=== PATIENT | female | born 1980 | race Caucasian/White ===

== ENCOUNTER 2018-01-26 16:23 | Emergency (ER) | payer OTHER, MEDICAID ==
[~2018-01-26] VITALS: Ht 160 cm; Wt 117.5 kg
[~2018-01-26 16:23] MED LIST: ALBUTEROL SULF8.5 GM IH; AUGMENTIN 500-1 EACH PO; BACTRIM DS TAB1 EACH PO; CARAFATE 1 GM TA1 G1; CLARITIN10 M2; CYMBALTA30 MG PO; CYMBALTA60 MG; DIPHENHIST50 MG PO; EPIPEN 2-P0.3 MG/0.3 IM; FLONASE; FLONASE 0.05%50 MCG NASAL; IBUPROFEN 800800 M1 PO; KEFLEX500 MG PO; LOVENOX40 MG/0.4 SQ; MACROBID 100 M100 M1 PO; MECLIZINE 25 MG25 M1; MEDROLDOSEPACK PO; NEURONTIN 300300 M1; NEURONTIN 300M300 M2; NORCO 5-325 TA1 EACH PO; OMEPRAZOLE40 MG; ONDANSETRON HCL4 M2 PO; PEPCID20 MG PO; PREDNISONE 10 M10 MG PO; PREDNISONE50 MG PO; PYRIDIUM200 MG PO; REGLAN 10 MG TA10 M1 PO; SINGULAIR 10 MG10 M1 PO; SYMBICORT160 MCG/4.; SYMBICORT80 MCG/4.1 INH; SYNTHROID25 MCG PO; TOBRADEX EYE DRO5 ML NASAL; VENTOLIN HFA 1818 GM INH; ZOCOR; ZOFRAN ODT4 MG; ZPAK PO; ZYRTEC10 MG PO; [UNRECOGNIZED DRUG - OTHER]
[2018-01-26] MEDS ORDERED: CLARITIN10 MG PO (16:38)
[2018-01-26] MEDS ORDERED: FLONASE 0.05%50 MCG NASAL (16:40)
[2018-01-26] MEDS ORDERED: IBUPROFEN 800800 MG PO (17:10)
[2018-01-26 17:40] VITALS: BP 123/79
[2018-01-27] MEDS ORDERED: NORCO 5-325 TA1 EAC1 PO (21:24)
== END 2018-01-26 17:42 | disposition home or self-care (01) ==
LOC: M.ERS 16:23
DX: S60.211A Contusion of right wrist, initial encounter (principal); E78.00 Pure hypercholesterolemia, unspecified; Z90.710 Acquired absence of both cervix and uterus; Z88.8 Allergy status to other drugs, medicaments and biological substances; Z88.5 Allergy status to narcotic agent; Z91.013 Allergy to seafood; W22.8XXA Striking against or struck by other objects, initial encounter; Y93.89 Activity, other specified; Y92.89 Other specified places as the place of occurrence of the external cause; Y99.8 Other external cause status

== ENCOUNTER 2018-01-27 21:00 | Emergency (ER) | payer OTHER, MEDICAID ==
[~2018-01-27] VITALS: Ht 160 cm; Wt 117.9 kg
[~2018-01-27 21:00] MED LIST changes: +CLARITIN10 MG PO; +IBUPROFEN 800800 MG PO
[2018-01-27 21:03] VITALS: BP 132/96
[2018-01-27] MEDS ORDERED: NORCO 5-325 TA1 EAC1 PO (21:24)
== END 2018-01-27 21:42 | disposition home or self-care (01) ==
LOC: M.ERS 21:00
DX: S63.501A Unspecified sprain of right wrist, initial encounter (principal); E78.00 Pure hypercholesterolemia, unspecified; Z90.710 Acquired absence of both cervix and uterus; Z87.442 Personal history of urinary calculi; Z88.4 Allergy status to anesthetic agent; Z88.5 Allergy status to narcotic agent; Z91.013 Allergy to seafood; X58.XXXA Exposure to other specified factors, initial encounter; Y93.89 Activity, other specified; Y92.89 Other specified places as the place of occurrence of the external cause; Y99.8 Other external cause status

== ENCOUNTER → 2018-04-20 | Outpatient (CLI) | payer OTHER, MEDICAID ==
[~2018-04-20] MED LIST changes: +NORCO 5-325 TA1 EAC1 PO
== END ==
LOC: M.RAD 09:48
DX: Z12.31 Encounter for screening mammogram for malignant neoplasm of breast (principal); E78.00 Pure hypercholesterolemia, unspecified

== ENCOUNTER 2019-02-14 00:01 | Inpatient (IN) | payer OTHER, MEDICAID ==
[~2019-02-14] VITALS: Ht 160 cm; Wt 114.8 kg
--- NOTE | ~2019-02-14 | CON ---
[address] [address] CONSULTATION Name: KAY BOONE Room: [address] IN .R.#: [id number] Admission: 02/14/19 Attend Phys: Jeff Geller, Discharge: Date of : 82 Report #: [id number] THIS REPORT FOR: //name// CC: Gareth Geller HISTORY OF PRESENT ILLNESS: This is a pleasant 38-year-old female with past medical history significant for fibromyalgia, osteoarthritis who is presenting for evaluation of acute onset right lower quadrant abdominal pain. The patient reports the pain began yesterday in the afternoon. The pain is located in the right lower quadrant, nonradiating and there is no specific relation to food or bowel movements. The patient does, however, report that since the onset of pain, she has noticed diarrhea and has gone about 4-5 bowel movements a day. She denies any hematemesis. The patient does report mild tenesmus and urge to pass stool, but she often does not pass stool. The patient denies similar episodes in the past and has never had a colonoscopy in the past. PAST MEDICAL HISTORY: As mentioned above. The patient has history of fibromyalgia, osteoarthritis. PAST SURGICAL HISTORY: The patient had hysterectomy in the past because of family history of ovarian cancer and uterine cancer. SOCIAL HISTORY: The patient smokes about a pack per day, but is attempting to quit smoking by taking Chantix. She has a history of recreational marijuana use that she quit about 6 months back. REVIEW OF SYSTEMS: A comprehensive 10-point review of systems is negative except for what was mentioned in the HPI. PHYSICAL EXAMINATION: VITAL SIGNS: Temperature 37.9, pulse rate 110, blood pressure 107/59, respiratory rate 20. GENERAL: The patient is alert, awake, oriented x 3. HEENT: Pupils are equal, round, and reactive to light and accommodation. Mucous membranes are moist. There is no congestion. LUNGS: Clear to auscultation bilaterally. CARDIOVASCULAR: Rate and rhythm regular, S1, S2 present. ABDOMEN: Soft. There is mild tenderness to deep palpation in the right lower quadrant. Otherwise, abdominal exam is normal. EXTREMITIES: Warm and well perfused. There is no edema. SKIN: Warm and dry. LABORATORY DATA: Hemoglobin 12.8, hematocrit 39.8, platelet count 357, WBC count 14.8. Sodium 139, potassium 3.3, chloride 104, bicarb 24, BUN 8, creatinine 0.6, total bilirubin 0.2, AST 16, ALT 21, alk phos 111. [place]R 0[place]9. [place] [address] CONSULTATION Name: KYA BOONE ARACELI Room: [address] IN ..#: [id number] Admission: 02/14/19 Attend Phys: Jeff Geller, Discharge: Date of : 82 Report #: [id number] IMAGING: CT abdomen and pelvis, findings showed mild right-sided colitis. Suspect reactive right mesenteric adenopathy. A large bilobed left ovarian cystic mass. Suggest pelvic ultrasound for further evaluation. ASSESSMENT AND PLAN: This is a 38-year-old female with history as outlined above, presenting for evaluation of right lower quadrant abdominal pain and diarrhea. I would check the patient with stool pathogens and Clostridium difficile and if that is negative, proceed with colonoscopy. Further recommendations will be based on the results of colonoscopy. By: [id number] Tsai MD /nt
[2019-02-14 00:12] VITALS: BP 139/79
[2019-02-14 01:02] LABS: ABSOLUTE LYMPHOCYTES 1.7 thou/uL (0.8-5.3); ABSOLUTE MONOCYTES 0.7 thou/uL (0.0-1.2); ABSOLUTE NEUTROPHILS 12.4 thou/uL (1.6-8.1); BASOPHILS 0.3 %; EOSINOPHILS 0.3 %; HEMATOCRIT 39.8 % (37.0-47.0); HEMOGLOBIN 12.8 gm/dL (12.0-15.0); LYMPHOCYTES 11.5 %; MCH 28.9 pg (26.0-34.0); MCHC 32.1 g/dL (28.0-37.0); MONOCYTES 4.6 %; NUCLEATED RBCS 0 /100WBC; PLATELET COUNT* 357 thou/uL (150-400); POLYS 83.3 %; RBC 4.43 mil/uL (4.20-5.00); RDW-CV 15.9 % (10.5-14.5); WBC 14.8 thou/uL (4.0-11.0)
[2019-02-14 01:14] LABS: CALCIUM 8.8 mg/dL (8.5-10.1); CREATININE 0.9 mg/dL (0.6-1.3); POTASSIUM 3.2 mmol/L (3.5-5.1)
[2019-02-14 01:19] LABS: ALBUMIN 3.3 g/dL (3.4-5.0); TOTAL BILIRUBIN 0.2 mg/dL (<0.1-1.0); TOTAL PROTEIN 7.4 g/dL (6.4-8.2)
[2019-02-14 01:44] LABS: URINE BILIRUBIN NEGATIVE (Negative); URINE BLOOD NEGATIVE (Negative); URINE CLARITY CLEAR; URINE COLOR YELLOW; URINE GLUCOSE-RANDOM NEGATIVE (Negative); URINE KETONES NEGATIVE (Negative); URINE LEUKOCYTES-REFLEX NEGATIVE (Negative); URINE NITRITE-REFLEX NEGATIVE (Negative); URINE PROTEIN NEGATIVE (Negative); URINE SPECIFIC GRAVITY >= 1.030 (1.005-1.030); URINE UROBILINOGEN 0.2 E.U./dl (0.2-1.0)
[2019-02-14 02:51] LABS: BE -0.9 mmol/L (-2 to +3); PCO2 34.9 mmHg (35.0-45.0); PO2 63.8 mmHg (75.0-100.0); pH 7.435 (7.340-7.450)
[2019-02-14 03:20] LABS: APTT 32.9 Seconds (25.0-31.3); INR 0.9; PROTIME 9.5 Seconds (9.20-11.50)
[2019-02-14 03:45] VITALS: BP 115/65
[2019-02-14 03:50] VITALS: BP 118/69
--- NOTE | 2019-02-14 07:49 | NUR ---
PT ADMITTED TO UNIT FROM ER AT ABOUT 0350. HR TACHY AT 122, PT SAYS ITS WITHIN HER NORMAL. TEMP AT ASSESSMENT = 100.4. NS INFUSING AT 100ML/HR. MORPHINE GIVEN X1 THIS SHIFT. DAUGHTER WITH PT IN THE ROOM. PT ORIENTED TO ROOM AND CALL LIGHT. HOURLY ROUNDINGS MADE. CALL LIGHT WITHIN REACH. GI CONSULT CALLED IN TO [facility] ([facility]). NPO AFTER MN. WILL CONTINUE TO MONITOR.
[2019-02-14 08:30] VITALS: BP 107/59
[2019-02-14 11:21] LABS: CALCIUM 8.4 mg/dL (8.5-10.1); CREATININE 0.6 mg/dL (0.6-1.3); MAGNESIUM 1.8 mg/dL (1.8-2.4); POTASSIUM 3.3 mmol/L (3.5-5.1)
[2019-02-14 16:00] VITALS: BP 109/51
--- NOTE | 2019-02-14 20:18 | NUR ---
I ASSUMED CARE OF THE PATIENT AT 0700. SHE IS ALERT AND ORIENTED X4 AND IS UP AD MIRA. HOURLY ROUNDING IS COMPLETED AND PATIENT NEEDS ARE MET. PAIN IS MANAGED WITH PRN MEDS. IV WAS REPLACED IN THE RIGHT AC. POTASSIUM WAS REPLACED. DAUGHTER IS AT THE BEDSIDE. BED IS IN THE LOW LOCKED POSITION AND CALL LIGHT IS IN REACH. WILL CONTINUE TO MONITOR.
[2019-02-14 21:00] VITALS: BP 109/55
[2019-02-15 03:42] LABS: ABSOLUTE EOSINOPHILS 0.1 thou/uL (0.0-0.7); ABSOLUTE LYMPHOCYTES 2.4 thou/uL (0.8-5.3); ABSOLUTE MONOCYTES 0.7 thou/uL (0.0-1.2); ABSOLUTE NEUTROPHILS 5.8 thou/uL (1.6-8.1); BASOPHILS 0.5 %; EOSINOPHILS 0.7 %; HEMOGLOBIN 11.5 gm/dL (12.0-15.0); LYMPHOCYTES 26.6 %; MCH 28.9 pg (26.0-34.0); MCV 90.4 fL (80.0-100.0); MONOCYTES 7.6 %; MPV 8.1 fl. (7.2-11.1); NUCLEATED RBCS 0 /100WBC; PLATELET COUNT* 320 thou/uL (150-400); POLYS 64.6 %; RBC 3.98 mil/uL (4.20-5.00); RDW-CV 16.2 % (10.5-14.5)
[2019-02-15 04:00] VITALS: BP 95/43
[2019-02-15 04:05] LABS: ALBUMIN 2.7 g/dL (3.4-5.0); CALCIUM 8.1 mg/dL (8.5-10.1); CREATININE 0.7 mg/dL (0.6-1.3); MAGNESIUM 1.9 mg/dL (1.8-2.4); POTASSIUM 3.6 mmol/L (3.5-5.1); TOTAL BILIRUBIN 0.1 mg/dL (<0.1-1.0); TOTAL PROTEIN 6.4 g/dL (6.4-8.2)
--- NOTE | 2019-02-15 06:52 | NUR ---
PATIENT SLEPT PART OF THE NIGHT. PATIENT WAS GIVEN PAIN AND NAUSEA MEDS ABOUT EVERY 4 HOURS. PATIENT STATES SHE IS STILL HAVING LOOSE STOOLS, CDIFF STILL PENDING. IV FLUIDS AND ANTIBIOTICS WERE GIVEN ORDERED. WILL CONTINUE TO MONITOR.
[2019-02-15 08:15] VITALS: BP 100/44
--- NOTE | 2019-02-15 15:51 | NUR ---
W[employer] M[employer] GATE ASSEMBLER SPOKE TO THE PATIENT TO DISCUSS DISCHARGE PLANNING NEEDS. PATIENT IS ALERT, ORIENTED, AND INDEPENDENT WITH ADL'S. PATIENT DOES NOT ANTICIPATE ANY DISCHARGE PLANNING NEEDS. CM WILL REMAIN AVAILABLE TO ASSIST AND FOLLOW NEEDED.
[2019-02-15 16:00] VITALS: BP 113/73
--- NOTE | 2019-02-15 17:49 | NUR ---
PATIENT RESTING IN BED. PATIENT IS UP AD MIRA IN ROOM AND HAS WALKED IN HALLS. PATIENT HAS HAD COMPLAINTS OF ABDOMINAL PAIN AND NAUSEA, TREATED ADEQUATELY WITH MORPHINE AND ZOFRAN, TYLENOL GIVEN FOR A HEADACHE. PATIENT IS TOLERATING CLEAR LIQUIDS. PATIENT IS ON COLON PREP THIS EVENING AND IS TOLERATING GOLYTELY. PATIENT DENIES ANY NEEDS AT THIS TIME. CALL LIGHT WITHIN REACH. WILL CONTINUE TO MONITOR.
[2019-02-15 21:00] VITALS: BP 108/56
[2019-02-16 04:39] LABS: ABSOLUTE BASOPHILS 0.1 thou/uL (0.0-0.2); ABSOLUTE EOSINOPHILS 0.2 thou/uL (0.0-0.7); ABSOLUTE LYMPHOCYTES 2.9 thou/uL (0.8-5.3); ABSOLUTE MONOCYTES 0.5 thou/uL (0.0-1.2); ABSOLUTE NEUTROPHILS 3.3 thou/uL (1.6-8.1); BASOPHILS 0.9 %; EOSINOPHILS 2.2 %; HEMATOCRIT 33.9 % (37.0-47.0); LYMPHOCYTES 42.6 %; MCH 29.5 pg (26.0-34.0); MCHC 32.4 g/dL (28.0-37.0); MCV 91.2 fL (80.0-100.0); MONOCYTES 6.5 %; MPV 9.2 fl. (7.2-11.1); NUCLEATED RBCS 0 /100WBC; PLATELET COUNT* 281 thou/uL (150-400); POLYS 47.8 %; RBC 3.71 mil/uL (4.20-5.00); RDW-CV 16.4 % (10.5-14.5); WBC 6.9 thou/uL (4.0-11.0)
[2019-02-16 04:49] LABS: CALCIUM 8.2 mg/dL (8.5-10.1); CREATININE 0.6 mg/dL (0.6-1.3); MAGNESIUM 1.8 mg/dL (1.8-2.4); POTASSIUM 3.7 mmol/L (3.5-5.1)
--- NOTE | 2019-02-16 05:52 | NUR ---
PATIENT SLEPT MOST OF THE NIGHT. IV FLUIDS CONTINUE TO INFUSE. PATIENT IS NPO FOR COLONOSCOPY TODAY. PATIENT DRANK MOST OF HER BOWEL PREP AND STOOL ARE A LIGHT YELLOW. PAIN AND NAUSEA MEDICINE WAS GIVEN ONCE. WILL CONTINUE TO MONITOR.
[2019-02-16 07:45] VITALS: BP 108/56
--- NOTE | 2019-02-16 09:48 | NUR ---
Nutrition: Class III morbid obesity. Wt stabe from admits in prior 2 years 250-260 lb. Albumin and BUN low. IVF and other meds reviewed. Pt admit with N/V/D for about 1 day OUTBOARD [employer]OR TE[employer]. Pt NPO for colonscopy, rec advance diet as medically appropriate. Low nutrition risk at this time.
[2019-02-16 09:54] VITALS: BP 108/56
[2019-02-16 15:00] VITALS: BP 108/56
[2019-02-16 16:30] VITALS: BP 107/60
--- NOTE | 2019-02-16 17:40 | NUR ---
PATIENT RESTING IN BED. PATIENT IS UP AD MIRA IN ROOM. PATIENT HAD COLONOSCOPY THIS AFTERNOON WITHOUT INCIDENT. PATIENT IS TOLERATING REGULAR DIET. PATIENT STARTED ON HYDROCODONE FOR PAIN WITH ADEQUATE RELIEF. PATIENT DENIES ANY NEEDS AT THIS TIME. CALL LIGHT WITHIN REACH. WILL CONTINUE TO MONITOR.
[2019-02-16 20:40] VITALS: BP 92/51
[2019-02-17 04:14] LABS: CALCIUM 8.7 mg/dL (8.5-10.1); CREATININE 0.7 mg/dL (0.6-1.3); POTASSIUM 3.6 mmol/L (3.5-5.1)
--- NOTE | 2019-02-17 05:06 | NUR ---
PT ALERT AND ORIENTED. VITALS STABLE RA. MEDS GIVEN ORDERED. MORPHINE AND ZOFRAN GIVEN PER PT REQUEST. ELECTROLYTE PLACEMENT IN PROGRESS. HOURLY ROUNDING COMPLETED. WILL CONTINUE TO MONITOR.
[2019-02-17] MEDS ORDERED: SYNTHROID50 MCG PO (10:15)
[2019-02-17] MEDS ORDERED: BENTYL 10 MG CA10 M1 PO (10:16)
[2019-02-17] MEDS ORDERED: CIPRO500 MG PO (10:17)
[2019-02-17] MEDS ORDERED: LOPERAMIDE 2 MG2 M1 PO (10:17)
[2019-02-17] MEDS ORDERED: ZOFRAN ODT4 MG DISSOLVE (10:18)
[2019-02-17] MEDS ORDERED: FLAGYL500 M1 PO (10:18)
[2019-02-17 11:47] VITALS: BP 108/56
--- NOTE | 2019-02-17 13:30 | NUR ---
DISCHARGE TO HOME. DISCHARGE INSTRUCTIONS REVIEWED W/ PATIENT. PATIENT STATES VERBALLY OF UNDERSTANDING. SCRIPTS AND COPY OF INSTRUCTIONS GIVEN TO PATIENT. PATIENT ALERT AND ORIENTED, PLEASANT AND COOPERATIVE W/ ASSESS AND CARES. IV CATH DISCONTINUED, CATH TIP INTACT, COTTON BALL/TAPE APPLIED TO SITE. PATIENT DENIES NAUSEA/PAIN AT THIS TIME. BELONGINGS GATHERED AND LEAVE ROOM PER FAMILY MEMBERS. PATIENT ESCORTED PER PEDIS TO AWAITING VEHICLE W/ DIRECTOR [employer] PRESENT. NO OTHER NURSING NEEDS VOICED AT TIME OF DISCHARGE. NO S/S DISTRESS NOTED. ~TJRN
--- NOTE | 2019-02-19 15:05 | PATH ---
[address] [address] PATHOLOGY RPT PROCEDURE Name: SANDRAALYSHAKAY ARACELI Room: [address] IN .R.#: [id number] Admission: 02/14/19 Date of : 82 Discharge: 02/17/19 Report #: [id number] Path Case #: [id number] [facility] Accession Number: [id number] . 01 Material submitted: . PART A: colon - ASCENDING POLYP. Modifiers: ascending PART B: colon - RANDOM ASCENDING COLON BIOPSIES. Modifiers: ascending PART C: colon - RANDOM TRANSVERSE COLON BIOPSIES. Modifiers: transverse PART D: colon - RANDOM DESCENDING COLON BIOPSIES. Modifiers: descending . 01 Clinical history: . None provided . 02 Diagnosis: A. Ascending polyp: - Most consistent with juvenile polyp with erosion, negative for granulomas, viral inclusions and dysplasia/adenomatous change. See comment. . B and C. Random ascending colon biopsies and random transverse colon biopsies: - Severe active colitis, negative for granulomas, viral inclusions and dysplasia. See comment. . D. Random descending colon biopsies: - Mild active colitis, negative for granulomas, viral inclusions and dysplasia. See comment. LBQ/02/19/2019 . 02 Comment: Review of Dr. Albright's history and physical dated 02/14/2019, reveals the patient to have presented with nausea, vomiting, diarrhea and 8/10 colicky diffuse stomach pain ongoing for one day associated with fever and tachycardia. Dr. Tsai's procedure report dated 02/16/2019 revealed a single 10 mm polyp in the ascending colon, congested mucosa in the descending colon, transverse colon and ascending colon and otherwise normal. . Each of the random colon biopsies (B through D) shows active inflammation most severe in the ascending and transverse colon, including neutrophils throughout the lamina propria, cryptitis and easily identified crypt abscesses and the more proximal biopsies show crypt drop out as well. No definite crypt distortion or basal lymphoplasmacytosis are seen. There is no inflammatory pseudomembrane and ischemic features are not apparent. The ascending polyp (A) is noted to show prominent lymphoid hyperplasia within the center of the polyp and otherwise features of a juvenile polyp with, however, a prominence of eosinophils throughout in addition to the erosion and acute inflammation present[place] [address] PATHOLOGY RPT PROCEDURE Name: KAY BOONE Room: [address] IN M.R.#: [id number] Admission: 02/14/19 Date of : 82 Discharge: 02/17/19 Report #: [id number] Path Case #: [id number] histologic findings are thought best to support the presence of a juvenile polyp in the setting of acute/self-limited colitis or infectious colitis, although some of the histologic findings bring to mind the possiblity of Crohn's disease. (GIORGI/db; 02/19/2019) . 02 Electronically signed: . Pablito Gaytan MD, Pathologist NPI- [id number] . 01 Gross description: . A. Received in formalin labeled "Larocco, Kay, ascending colon polyp," is a 1.0 x 0.8 x 0.8 cm polypoid piece of martines soft tissue. The margin is inked and the tissue is sectioned perpendicular to the margin and submitted in its entirety in cassettes A1 and A2. . B. Received in formalin labeled "Larocco, Aky, random ascending colon biopsies," are 3 segments of martines soft tissue measuring 1.0 x 0.8 x 0.1 cm in aggregate dimensions and ranging from 0.3 to 0.5 cm in maximum dimension. The specimen is submitted entirely in cassette B1. . C. Received in formalin labeled "Larocco, Kay, random transverse colon biopsies," are 2 segments of martines soft tissue measuring 0.7 x 0.2 x 0.1 cm in aggregate dimensions and ranging from 0.2 to 0.5 cm in maximum dimension. The specimen is submitted entirely in cassette C1. . D. Received in formalin labeled "Larocco, Kay, random descending colon biopsies," are 3 segments of martines soft tissue measuring 1.1 x 0.8 x 0.1 cm in aggregate dimensions and ranging from 0.3 to 0.4 cm in maximum dimension. The specimen is submitted entirely in cassette D1. (TSD; 02/16/2019) TOB/TOB . 02 Pathologist provided ICD-10: K63.5, K52.9, R11.2, R19.7 . 02 CPT . 424142, 479440, 228900, 038153 Specimen Comment: A courtesy copy of this report has been sent to Specimen Comment: [phone], , . Specimen Comment: Report sent to ,DR SHIPLEY / DR NEWMAN Performed at: [address], [place], [place] [id number] MD Brandon Rodriguez MD Phone: [phone] Performed at: 02 [facility] [address], [place], [place] [id number] MD Pablito Gaytan MD Phone: [phone]
== END 2019-02-17 13:30 | disposition home or self-care (01) | DRG 872 ==
LOC: M.ERS 00:01 → M.TBA-ER 03:09 → M.ORTHSURG 03:09
PROVIDERS: Family Medicine; Personal Emergency Response Attendant; ADMIT Family Medicine
PROC: 0DBL8ZX Excision of Transverse Colon, Via Natural or Artificial Opening Endoscopic, Diagnostic (ICD-10-PCS; principal; 2019-02-16)
PROC: 0DBM8ZX Excision of Descending Colon, Via Natural or Artificial Opening Endoscopic, Diagnostic (ICD-10-PCS; principal; 2019-02-16)
PROC: 0DBK8ZX Excision of Ascending Colon, Via Natural or Artificial Opening Endoscopic, Diagnostic (ICD-10-PCS; principal; 2019-02-16)
DX: A41.9 Sepsis, unspecified organism (principal); R65.20 Severe sepsis without septic shock; E78.00 Pure hypercholesterolemia, unspecified; K52.9 Noninfective gastroenteritis and colitis, unspecified; M79.7 Fibromyalgia; M19.90 Unspecified osteoarthritis, unspecified site; F17.210 Nicotine dependence, cigarettes, uncomplicated; K21.9 Gastro-esophageal reflux disease without esophagitis; E87.6 Hypokalemia; Z80.41 Family history of malignant neoplasm of ovary; Z87.442 Personal history of urinary calculi; Z90.710 Acquired absence of both cervix and uterus; Z79.899 Other long term (current) drug therapy; Z88.8 Allergy status to other drugs, medicaments and biological substances; Z88.6 Allergy status to analgesic agent; Z91.013 Allergy to seafood